=== PATIENT | female | born 1980 | race Caucasian/White ===

== ENCOUNTER 2019-11-04 00:22 | Emergency (ER) | payer MEDICAID ==
[~2019-11-04] VITALS: Ht 162.6 cm; Wt 135.2 kg
[2019-11-04 00:42] VITALS: BP 129/78
--- NOTE | 2019-11-04 01:00 | NUR ---
ASSESSMENT COMPLETE AT THIS TIME. PATIENT HOOKED UP TO MONITOR. VSS. BIB SELF REPORTS 3 EPISODES OF BLOODY STOOL, STATES SHE SAW CLOTS IN THE LAST BM 1 HOUR W[employer]. PATIENT STATES SHARP ABD PAIN IN UMBILCAL REGION, RADIATING TO BACK. NO SOB, FEVER, CHEST PAIN, NVD REPORTED. PATIENT ALSO REPORTS GENERALIZED WEAKNESS. PATIENT STATES FAMILY HISTORY OF COLON CANCER.
[2019-11-04] MEDS ORDERED: NACL 0.9% 1,000 ML IV SCH (01:21)
[2019-11-04] MEDS ORDERED: metroNIDAZOLE 500 MG TAB PO ONE (01:25)
[2019-11-04] MEDS ORDERED: ONDANSETRON 4 MG/2 ML VIAL IVP ONE (01:25)
[2019-11-04] MEDS ORDERED: CIPROFLOXACIN 250 MG TAB PO ONE (01:25)
[2019-11-04 01:41] LABS: APPEARANCE,URINE CLEAR (CLEAR); BILIRUBIN,URINE NEGATIVE (NEGATIVE); BLOOD, URINE TRACE-I (NEGATIVE); COLOR,URINE YELLOW (YELLOW); LEUKOCYTE ESTERASE ,URINE NEGATIVE (NEGATIVE); NITRITE, URINE NEGATIVE (NEGATIVE); UGLUCOSE NEGATIVE (NEGATIVE)
[2019-11-04 01:48] LABS: BASOPHILS % (AUTO) 0.5 % (0.0-2.0); EOSINOPHILS # (AUTO) 0.4 K/uL (0-0.4); EOSINOPHILS % (AUTO) 4.1 % (0.0-4.0); HEMATOCRIT 41.2 % (36-48); HEMOGLOBIN 13.7 g/dL (12.0-16.0); LYMPHOCYTES # (AUTO) 3.7 K/uL (2.5-16.5); LYMPHOCYTES % (AUTO) 36.1 % (20.5-51.1); MEAN CORPUSCULAR HEMOGLOBIN 29 pg (27-31); MEAN CORPUSCULAR HGB CONC 33 g/dL (33-37); MEAN CORPUSCULAR VOLUME 87.8 fL (80-94); MONOCYTES % (AUTO) 9.3 % (1.7-9.3); NEUTROPHILS # (AUTO) 5.2 K/uL (1.8-7.7); PLATELET COUNT (AUTO) 318 K/uL (140-450); RED BLOOD CELL COUNT(AUTO) 4.69 MIL/uL (4.20-5.40); RED CELL DISTRIBUTION WIDTH 13.5 % (11.6-13.7); WHITE BLOOD COUNT (AUTO) 10.4 K/uL (4.8-10.8)
[2019-11-04 01:49] LABS: ANION GAP 14.3 (8-16); CARBON DIOXIDE 26.5 mmol/L (21-32); CREATININE 0.8 mg/dL (0.6-1.3); POTASSIUM 3.8 mmol/L (3.5-5.1)
[2019-11-04 01:55] LABS: ALBUMIN 3.1 g/dL (3.4-5.0); TOTAL BILIRUBIN 0.2 mg/dL (0.0-1.0)
[2019-11-04] MEDS ORDERED: MORPHINE SULFATE 4 MG/ML SYR IVP ONE (01:55)
[2019-11-04 01:57] LABS: RBC,URINE 0-5 /HPF (0-5); WBC,URINE 0-5 /HPF (0-5)
[2019-11-04 02:43] VITALS: BP 129/78
--- NOTE | 2019-11-04 02:43 | NUR ---
Patient discharged with v/s stable. Written and verbal after care instructions given and explained. Patient alert, oriented and verbalized understanding of instructions. Ambulatory with steady gait. All questions addressed prior to discharge. ID band removed. Patient advised to follow up with PMD. Rx of CIPROFLXACIN,METRONIDAZOLE, AND ZOFRAN given. Patient educated on indication of medication including possible reaction and side effects. Opportunity to ask questions provided and answered.
--- NOTE | 2019-11-06 10:52 | NUR ---
Late entry. Confirmed with RN that 0.9 NS IV completed at 0230
== END 2019-11-04 02:43 | disposition home or self-care (01) ==
LOC: MED 00:22
DX: R10.2 Pelvic and perineal pain (principal); K92.0 Hematemesis; R19.7 Diarrhea, unspecified; M54.5 Low back pain; Z87.442 Personal history of urinary calculi; Z90.49 Acquired absence of other specified parts of digestive tract; Z88.6 Allergy status to analgesic agent
CPT/HCPCS: 36415; 80053; 81001; 82150; 83690; 85025; 96361; 96374; 96375; 99283; J2270; J2405; J7030